=== PATIENT | female | born 1940 | race Caucasian/White ===

== ENCOUNTER 2018-03-11 06:46 | Day surgery (SDC) | payer OTHER, MEDICARE ==
[2018-03-11] MEDS ORDERED: Propofol 200 MG/20 ML SDV ONE (06:58)
[2018-03-11] MEDS ORDERED: fentaNYL 100 MCG/2 ML SDV ONE (06:58)
[2018-03-11] MEDS ORDERED: Lidocaine 2% 5 ML SDV ONE (06:58)
[2018-03-11] MEDS ORDERED: Bupivacaine 0.25%/EPINEPHrine 1:200,000 10 ML SDV ONE (07:20)
--- NOTE | 2018-03-11 07:48 | PCM.PREANE ---
Preanesthetic Assessment - Procedure Proposed Procedure: right CTR - Anesthesia/Transfusion/Family Hx Anesthesia History: Prior Anesthesia Without Reaction Family History of Anesthesia Reaction: No Transfusion History: No Prior Transfusion(s) Intubation History: Unknown - Review of Systems General: No Symptoms Pulmonary: No Symptoms Cardiovascular: Other (HTN) Gastrointestinal: No Symptoms Neurological: Pre-Existing Deficit (right hand) Other: Reports: None - Physical Assessment NPO Status Date: 03/10/18 NPO Status Time: 18:00 O2 Sat by Pulse Oximetry: 96 Respiratory Rate: 16 Vital Signs: Last Vital Signs Temp 97.3 F 03/11/18 07:00 Pulse 65 03/11/18 07:00 Resp 16 03/11/18 07:00 BP 179/76 H 03/11/18 07:00 Pulse Ox 96 03/11/18 07:00 Height: 5 ft 4 in Weight: 123 lb ASA Class: 2 Mental Status: Alert & Oriented x3 Airway Class: Mallampati = 1 Dentition: Reports: Normal Dentition Thyro-Mental Finger Breadths: 3 Mouth Opening Finger Breadths: 3 ROM/Head Extension: Full Lungs: Clear to Auscultation, Normal Respiratory Effort Cardiovascular: Regular Rate, Regular Rhythm, No Murmurs - Allergies Allergies/Adverse Reactions: Allergies Allergy/AdvReac Type Severity Reaction Status Date / Time acetaminophen [From Tylenol] Allergy Cannot Verified 03/09/18 17:02 Remember hydrocodone Allergy Cannot Verified 03/09/18 17:02 Remember sulfamethoxazole Allergy Cannot Verified 03/09/18 17:02 [From Bactrim] Remember trimethoprim [From Bactrim] Allergy Cannot Verified 03/09/18 17:02 Remember - Blood Blood Available: No Product(s) Available: None - Anesthesia Plan Pre-Op Medication Ordered: None - Acknowledgements Anesthesia Type Planned: MAC Pt an Appropriate Candidate for the Planned Anesthesia: Yes Alternatives and Risks of Anesthesia Discussed w Pt/Guardian: Yes Pt/Guardian Understands and Agrees with Anesthesia Plan: Yes PreAnesthesia Questionnaire - Past Health History Medical/Surgical History: Denies Medical/Surgical History HEENT History: Reports: Other (See Below) Other HEENT History: wears contacts Cardiovascular History: Reports: High Cholesterol, Hypertension Respiratory History: Reports: None Gastrointestinal History: Genitourinary History: Reports: None GENERAL FOREMAN History: Reports: Musculoskeletal History: Reports: Fracture Other Musculoskeletal History: hx of fx foot Neurological History: Reports: Migraines, Other (See Below) Other Neuro History: hx of migranes- not recently- hx of motion sickness- not recently Psychiatric History: Reports: None Endocrine/Metabolic History: Reports: None Hematologic History: Reports: None Immunologic History: Reports: None Oncologic (Cancer) History: Reports: Squamous Cell Carcinoma Other Oncologic History: skin cancer removed from arm Dermatologic History: Reports: Other (See Below) Other Dermatologic History: skin cancer - Past Surgical History Head Surgeries/Procedures: Reports: None GI Surgical History: Reports: Colonoscopy, EGD Musculoskeletal Surgical History: Reports: Other (See Below) Other Musculoskeletal Surgeries/Procedures:: bunionectomy and Shoulder Surgery Dermatological Surgical History: Reports: Skin Biopsy - SUBSTANCE USE Smoking Status *Q: Never Smoker Recreational Drug Use History: No - HOME MEDS Home Medications: Home Meds Aspirin [Lacie Chewable Aspirin] 81 mg PO DAILY 12/04/13 [History] Cholecalciferol (Vitamin D3) [Vitamin D3] 1,000 unit PO DAILY 12/04/13 [History] Cyanocobalamin (Vitamin B-12) [Vitamin B-12] 1,000 mcg PO DAILY 12/04/13 [ History] atorvaSTATin [Lipitor] 10 mg PO BEDTIME 12/04/13 [History] amLODIPine Besylate [Amlodipine Besylate] 2.5 mg PO DAILY 01/28/15 [History] Alendronate Sodium [Fosamax] 70 mg PO WEEKLY 12/06/15 [History] Losartan Potassium 100 mg PO DAILY 03/09/18 [History] - CURRENT (IN HOUSE) MEDS Current Meds: Current Medications Bupivacaine HCl/Epinephrine Bitart (Marcaine 0.25%/Epinephrine 1:200,000) 10 ml INJECT ONETIME ONE Stop: 03/11/18 08:01 Cefazolin Sodium/Dextrose 2 gm (/ Premix) 50 mls @ 100 mls/hr IV ONETIME ONE Stop: 03/11/18 08:29 Lactated Ringer's (Ringers, Lactated) 1,000 mls @ 125 mls/hr IV ASDIRECTED NICOLASA Last Admin: 03/11/18 07:05 Dose: 125 mls/hr Tramadol HCl (Ultram) 50 mg PO Q4H PRN PRN Reason: Pain Discontinued Medications Bupivacaine HCl/Epinephrine Bitart (Marcaine 0.25%/Epinephrine 1:200,000) Confirm Administered Dose 10 ml .ROUTE .STK-MED ONE Stop: 03/11/18 07:21 Fentanyl (Sublimaze) Confirm Administered Dose 100 mcg .ROUTE .STK-MED ONE Stop: 03/11/18 06:59 Lidocaine (Xylocaine-Mpf 2%) Confirm Administered Dose 5 ml .ROUTE .STK-MED ONE Stop: 03/11/18 06:59 Propofol (Diprivan 20 Ml) Confirm Administered Dose 200 mg .ROUTE .STK-MED ONE Stop: 03/11/18 06:59
[2018-03-11] MEDS ORDERED: ceFAZolin 2 GM in Premix Bag 1 BAG IV ONE (08:00)
[2018-03-11] MEDS ORDERED: traMADol 50 MG Tab PO PRN (08:00)
[2018-03-11] MEDS ORDERED: Bupivacaine 0.25%/EPINEPHrine 1:200,000 10 ML SDV INJECT ONE (08:00)
[2018-03-11] MEDS ORDERED: Lactated Ringers 1,000 ML IV SCH (08:00)
[2018-03-11] MEDS ORDERED: Water For Injection, Sterile 20 ML ONE (08:07)
[2018-03-11] MEDS ORDERED: ceFAZolin 1 GM Vial ONE (08:07)
--- NOTE | 2018-03-11 09:18 | PCM48HPAN ---
Post Anesthesia Note - EVALUATION WITHIN 48HRS OF ANESTHETIC Vital Signs in Normal Range: Yes Patient Participated in Evaluation: Yes Respiratory Function Stable: Yes Airway Patent: Yes Cardiovascular Function Stable: Yes Hydration Status Stable: Yes Pain Control Satisfactory: Yes Nausea and Vomiting Control Satisfactory: Yes Mental Status Recovered: Yes Resp Rate: 16 - COMMENTS/OBSERVATIONS Free Text/Narrative:: Patient was returned directly to [facility] from OR in good condition.
--- NOTE | 2018-03-11 09:19 | PCM.POSTAN ---
POST ANESTHESIA ASSESSMENT - OBSERVATIONS Free Text/Narrative:: not applicable since patient returned directly to [facility]
[2018-03-11 09:31] VITALS: BP 156/69
--- NOTE | 2018-03-11 13:16 | PCM.OPNOTE ---
- General Post-Op/Procedure Note Date of Surgery/Procedure: 03/11/18 Operative Procedure(s): right carpal tunnel release Pre Op Diagnosis: right carpal tunnel Post-Op Diagnosis: Same Anesthesia Technique: Local, MAC Primary Surgeon: Yael Turner Strawberry Grower: Jennie Hall Complications: None Condition: Good Free Text/Narrative:: Intake & Output 03/10/18 03/11/18 03/11/18 23:59 07:59 15:59 Intake Total 100 Balance 100
--- NOTE | 2018-03-11 23:26 | OR ---
SURGEON: LILI VELEZ MD DATE OF PROCEDURE: 03/11/2018 PREOPERATIVE DIAGNOSIS: Right carpal tunnel syndrome. POSTOPERATIVE DIAGNOSIS: Right carpal tunnel syndrome. PROCEDURE: Right carpal tunnel release. IRONER SOCK: FISH Maya. REASON FOR AND ROLE OF IRONER SOCK: Retraction, prepping, draping, positioning and closure assistance. ANESTHESIA: Local MAC. INDICATIONS: Ms. Arnold is a 78-year-old female with right carpal tunnel syndrome. Risks and benefits of release were discussed with her and she was in agreement to proceed. Risks were including, but not limited to, bleeding, infection, damage to underlying or overlying structures, possible need for future interventions, and possible scarring. PROCEDURE IN DETAIL: After informed consent was obtained and placed on the chart, the patient was brought to the operating theater and laid in supine position. After adequate local MAC anesthesia was obtained, the area was prepped and draped and a time- out was completed to confirm side and site. Marcaine 0.25% with epinephrine was injected into the area in a field block and the arm was exsanguinated and the tourniquet was insufflated to 200 mmHg. Attention was then paid to dissection over the transverse carpal ligament using a #15 blade to dissect through skin and subcutaneous tissues until breach of the ligament. Under direct visualization, dissection was then carried distally and proximally until complete release of the ligament. The wound was then copiously irrigated and the wound was closed using a 5-0 nylon stitch in a horizontal mattress fashion. The patient tolerated this well. All counts and needles were correct at the end of the case. The wound was dressed with Xeroform, fluffs, and a Kerlix gauze dressing and a 2- inch Bulmaro wrap. FOLLOWUP INSTRUCTIONS: The patient will see us in 2 weeks for suture removal or sooner if any problems, questions, or concerns. HEGGTHE / ARMIDAL /[id number]
== END 2018-03-11 09:40 | disposition home or self-care (01) ==
LOC: MW.SDS 06:46
PROVIDERS: ATTEND Plastic Surgery
DX: G56.01 Carpal tunnel syndrome, right upper limb (principal); G56.11 Other lesions of median nerve, right upper limb; I10 Essential (primary) hypertension; E78.00 Pure hypercholesterolemia, unspecified; Z79.82 Long term (current) use of aspirin; Z79.899 Other long term (current) drug therapy; Z88.1 Allergy status to other antibiotic agents; Z88.5 Allergy status to narcotic agent
CPT/HCPCS: 64721; J0690; J2704; J3010; J3490; J7120

== ENCOUNTER 2023-01-27 03:51 | Emergency (ER) | payer MEDICARE ==
[2023-01-27] MEDS ORDERED: Acetaminophen 500 MG Tab PO ONE (04:09)
[2023-01-27 04:20] LABS: BASOPHILS PERCENT AUTO 0.2 % (0.0-1.5); EOSINOPHILS PERCENT AUTO 0.3 % (0.0-7.0); HEMATOCRIT 36.3 % (36.0-46.0); HEMOGLOBIN 12.2 g/dL (12.0-16.0); LYMPHOCYTES PERCENT AUTO 9.7 % (16.0-40.0); MEAN CORPUSCULAR HEMOGLOBIN 32.7 pg (27.0-32.0); MEAN CORPUSCULAR HGB CONC 33.6 g/dL (31.0-37.0); MEAN CORPUSCULAR VOLUME 97.3 fL (80.0-98.0); MONOCYTES ABSOLUTE AUTO 1.1 K/uL (0.0-0.8); MONOCYTES PERCENT AUTO 10.1 % (0.0-15.0); NEUTROPHILS ABSOLUTE AUTO 8.4 K/uL (1.4-5.7); NEUTROPHILS PERCENT AUTO 79.7 % (48.0-80.0); NRBC ABSOLUTE 0 K/uL; PLATELET COUNT,PLT 229 K/uL (150-400); RED BLOOD CELL COUNT 3.73 M/uL (4.30-5.90); WHITE BLOOD CELL COUNT,WBC 10.49 K/uL (4.0-11.0)
[2023-01-27 04:47] LABS: A/G RATIO 0.9 (0.9-1.6); ALBUMIN 3.1 g/dL (3.4-5.0); BILIRUBIN TOTAL 0.9 mg/dL (0.2-1.0); CALCIUM 8.2 mg/dL (8.5-10.1); CARBON DIOXIDE,CO2 23.7 mmol/L (21.0-32.0); EST CRCL DRUG DOSING (CG) 36.81 mL/min; POTASSIUM,K 3.9 mmol/L (3.5-5.1); PROTEIN TOTAL,TP 6.5 g/dL (6.4-8.2)
[2023-01-27 04:48] LABS: LACTIC ACID 0.7 mmol/L (0.4-2.0)
[2023-01-27] MEDS ORDERED: Azithromycin 500 MG in Sodium Chloride 0.9% 250 ML IV ONE (04:59)
[2023-01-27] MEDS ORDERED: cefTRIAXone 1 GM in Sodium Chloride 0.9% 50 ML IV ONE (04:59)
[2023-01-27 05:14] LABS: APPEARANCE,URINE CLEAR; BILIRUBIN,URINE NEGATIVE (NEGATIVE); GLUCOSE,URINE NEGATIVE (NEGATIVE); KETONES,URINE NEGATIVE (NEGATIVE); LEUKOCYTE ESTERASE,URINE NEGATIVE (NEGATIVE); NITRITE,URINE NEGATIVE (NEGATIVE); OCCULT BLOOD,URINE NEGATIVE (NEGATIVE); PROTEIN,URINE NEGATIVE (NEGATIVE); UROBILINOGEN,URINE 0.2 EU/dL (<2.0)
[2023-01-27 05:20] LABS: COLOR,URINE AMBER
[2023-01-27 06:29] VITALS: BP 111/51; PULSE 80
== END 2023-01-27 06:30 | disposition home or self-care (01) ==
LOC: MW.ED 03:51
DX: J18.9 Pneumonia, unspecified organism (principal); I10 Essential (primary) hypertension; Z20.822 Contact with and (suspected) exposure to COVID-19; Z79.899 Other long term (current) drug therapy; Z88.8 Allergy status to other drugs, medicaments and biological substances; Z88.2 Allergy status to sulfonamides
CPT/HCPCS: 36415; 71045; 80053; 81003; 83605; 83880; 84484; 85025; 85379; 87040; 93005; 96365; 96368; 99285; A9270; J0456; J0696; J3490; J7050; U0002; 93010; 99284

== ENCOUNTER 2023-01-31 15:54 | Inpatient (IN) | payer MEDICARE ==
[2023-01-31] MEDS ORDERED: LORazepam 2 MG/ML SDV IVPUSH ONE (17:03)
[2023-01-31 17:18] LABS: BASOPHILS PERCENT AUTO 0.2 % (0.0-1.5); EOSINOPHILS PERCENT AUTO 0.1 % (0.0-7.0); HEMOGLOBIN 12.5 g/dL (12.0-16.0); LYMPHOCYTES ABSOLUTE AUTO 1.3 K/uL (0.6-2.4); LYMPHOCYTES PERCENT AUTO 12.3 % (16.0-40.0); MEAN CORPUSCULAR HEMOGLOBIN 31.7 pg (27.0-32.0); MEAN CORPUSCULAR HGB CONC 32.9 g/dL (31.0-37.0); MEAN CORPUSCULAR VOLUME 96.4 fL (80.0-98.0); MONOCYTES ABSOLUTE AUTO 1.1 K/uL (0.0-0.8); MONOCYTES PERCENT AUTO 10.9 % (0.0-15.0); NEUTROPHILS ABSOLUTE AUTO 7.9 K/uL (1.4-5.7); NEUTROPHILS PERCENT AUTO 76.5 % (48.0-80.0); NRBC ABSOLUTE 0 K/uL; PLATELET COUNT,PLT 334 K/uL (150-400); RED BLOOD CELL COUNT 3.94 M/uL (4.30-5.90); WHITE BLOOD CELL COUNT,WBC 10.27 K/uL (4.0-11.0)
[2023-01-31] MEDS: Lactated Ringers 1,000 ML IV SCH (17:25)
[2023-01-31 17:41] LABS: A/G RATIO 0.8 (0.9-1.6); ALBUMIN 3.2 g/dL (3.4-5.0); BILIRUBIN TOTAL 0.8 mg/dL (0.2-1.0); CALCIUM 9.1 mg/dL (8.5-10.1); EST CRCL DRUG DOSING (CG) 36.81 mL/min; POTASSIUM,K 3.9 mmol/L (3.5-5.1); PROTEIN TOTAL,TP 7.3 g/dL (6.4-8.2)
[2023-01-31] MEDS ORDERED: Piperacillin/Tazobactam 4.5 GM in Sodium Chloride 0.9% 100 ML IV SCH (18:00)
[2023-01-31] MEDS ORDERED: Sodium Chloride 0.9% 20 ML SDV IV PRN (18:02)
[2023-01-31] MEDS ORDERED: Ondansetron 4 MG/2 ML SDV IVPUSH PRN (18:02)
[2023-01-31] MEDS ORDERED: Sodium Chloride 0.9% 10 ML Syringe FLUSH PRN (18:02)
[2023-01-31] MEDS ORDERED: Polyethylene Glycol 3350 Powder 17 GM Packet PO PRN (18:02)
[2023-01-31] MEDS ORDERED: LORazepam 2 MG/ML SDV IVPUSH PRN (18:02)
[2023-01-31] MEDS ORDERED: Acetaminophen 325 MG Tab PO PRN (18:02)
[2023-01-31] MEDS ORDERED: Albuterol/Ipratropium 3.0-0.5 MG/3 ML Neb Soln NEB PRN (18:02)
[2023-01-31] MEDS ORDERED: Sodium Chloride 0.9% 2.5 ML Syringe FLUSH PRN (18:02)
[2023-01-31] MEDS: Ampicillin/Sulbactam Na 1.5 GM in Sodium Chloride 0.9% 50 ML IV SCH ×2 (19:33→23:40)
[2023-02-01 00:35] LABS: APPEARANCE,URINE SLT CLOUDY; BILIRUBIN,URINE NEGATIVE (NEGATIVE); COLOR,URINE YELLOW; GLUCOSE,URINE NEGATIVE (NEGATIVE); KETONES,URINE TRACE mg/dL (NEGATIVE); LEUKOCYTE ESTERASE,URINE NEGATIVE (NEGATIVE); NITRITE,URINE NEGATIVE (NEGATIVE); OCCULT BLOOD,URINE NEGATIVE (NEGATIVE); PROTEIN,URINE NEGATIVE (NEGATIVE); UROBILINOGEN,URINE 0.2 EU/dL (<2.0)
[2023-02-01] MEDS: Lactated Ringers 1,000 ML IV SCH ×3 (01:29→17:53)
[2023-02-01 05:57] LABS: BASOPHILS PERCENT AUTO 0.3 % (0.0-1.5); HEMATOCRIT 37.4 % (36.0-46.0); HEMOGLOBIN 12.3 g/dL (12.0-16.0); LYMPHOCYTES ABSOLUTE AUTO 0.7 K/uL (0.6-2.4); LYMPHOCYTES PERCENT AUTO 6.5 % (16.0-40.0); MEAN CORPUSCULAR HEMOGLOBIN 31.6 pg (27.0-32.0); MEAN CORPUSCULAR HGB CONC 32.9 g/dL (31.0-37.0); MEAN CORPUSCULAR VOLUME 96.1 fL (80.0-98.0); MONOCYTES ABSOLUTE AUTO 1.3 K/uL (0.0-0.8); MONOCYTES PERCENT AUTO 11.4 % (0.0-15.0); NEUTROPHILS ABSOLUTE AUTO 9.4 K/uL (1.4-5.7); NEUTROPHILS PERCENT AUTO 81.8 % (48.0-80.0); NRBC ABSOLUTE 0 K/uL; PLATELET COUNT,PLT 326 K/uL (150-400); RED BLOOD CELL COUNT 3.89 M/uL (4.30-5.90); WHITE BLOOD CELL COUNT,WBC 11.46 K/uL (4.0-11.0)
[2023-02-01] MEDS: Ampicillin/Sulbactam Na 1.5 GM in Sodium Chloride 0.9% 50 ML IV SCH ×3 (06:12→17:54)
[2023-02-01 06:19] LABS: CALCIUM 8.3 mg/dL (8.5-10.1); CARBON DIOXIDE,CO2 24.2 mmol/L (21.0-32.0); CREATININE 0.8 mg/dL (0.6-1.0); EST CRCL DRUG DOSING (CG) 46.01 mL/min; MAGNESIUM 1.8 mg/dL (1.8-2.4); POTASSIUM,K 3.7 mmol/L (3.5-5.1)
[2023-02-01] MEDS: Benzonatate 100 MG Cap PO SCH ×3 (06:22→21:20)
[2023-02-01] MEDS ORDERED: Losartan 50 MG Tab PO SCH (09:00)
[2023-02-01] MEDS: Escitalopram 10 MG Tab PO SCH (09:39)
[2023-02-01] MEDS: Dorzolamide 2% Ophth Soln 10 ML Bottle EYEBOTH SCH (10:28)
[2023-02-01] MEDS ORDERED: Labetalol 100 MG/20 ML MDV IVPUSH PRN (10:41)
[2023-02-01] MEDS ORDERED: Acetaminophen 650 MG Supp RECTAL PRN (11:47)
[2023-02-01] MEDS: Enoxaparin 40 MG/0.4 ML Syringe SUBCUT SCH (11:51)
[2023-02-02] MEDS: Ampicillin/Sulbactam Na 1.5 GM in Sodium Chloride 0.9% 50 ML IV SCH ×2 (00:13→05:17)
[2023-02-02] MEDS: Lactated Ringers 1,000 ML IV SCH (01:47)
[2023-02-02] MEDS: Benzonatate 100 MG Cap PO SCH (05:19)
[2023-02-02 05:49] LABS: BASOPHILS PERCENT AUTO 0.2 % (0.0-1.5); EOSINOPHILS PERCENT AUTO 0.1 % (0.0-7.0); HEMATOCRIT 35.5 % (36.0-46.0); HEMOGLOBIN 11.7 g/dL (12.0-16.0); LYMPHOCYTES ABSOLUTE AUTO 0.8 K/uL (0.6-2.4); LYMPHOCYTES PERCENT AUTO 6.5 % (16.0-40.0); MEAN CORPUSCULAR HEMOGLOBIN 31.2 pg (27.0-32.0); MEAN CORPUSCULAR VOLUME 94.7 fL (80.0-98.0); MONOCYTES ABSOLUTE AUTO 1.3 K/uL (0.0-0.8); MONOCYTES PERCENT AUTO 9.9 % (0.0-15.0); NEUTROPHILS ABSOLUTE AUTO 10.6 K/uL (1.4-5.7); NEUTROPHILS PERCENT AUTO 83.3 % (48.0-80.0); NRBC ABSOLUTE 0 K/uL; PLATELET COUNT,PLT 322 K/uL (150-400); RED BLOOD CELL COUNT 3.75 M/uL (4.30-5.90); WHITE BLOOD CELL COUNT,WBC 12.67 K/uL (4.0-11.0)
[2023-02-02 06:05] LABS: CALCIUM 7.8 mg/dL (8.5-10.1); CARBON DIOXIDE,CO2 23.2 mmol/L (21.0-32.0); CREATININE 0.8 mg/dL (0.6-1.0); EST CRCL DRUG DOSING (CG) 46.01 mL/min; MAGNESIUM 1.6 mg/dL (1.8-2.4)
[2023-02-02] MEDS ORDERED: NS with KCl 40mEq 1,000 ML IV ONE (07:39)
[2023-02-02] MEDS: Losartan 50 MG Tab PO SCH (08:28)
[2023-02-02] MEDS: Escitalopram 10 MG Tab PO SCH (08:31)
[2023-02-02] MEDS: Dorzolamide 2% Ophth Soln 10 ML Bottle EYEBOTH SCH (08:32)
[2023-02-02] MEDS: Piperacillin/Tazobactam 4.5 GM in Sodium Chloride 0.9% 100 ML IV SCH ×2 (09:50→17:29)
[2023-02-02] MEDS ORDERED: Benzonatate 100 MG Cap PO PRN (10:09)
[2023-02-02] MEDS: Enoxaparin 40 MG/0.4 ML Syringe SUBCUT SCH (12:25)
[2023-02-03] MEDS: Piperacillin/Tazobactam 4.5 GM in Sodium Chloride 0.9% 100 ML IV SCH ×4 (00:18→20:42)
[2023-02-03 05:50] LABS: BASOPHILS PERCENT AUTO 0.2 % (0.0-1.5); EOSINOPHILS ABSOLUTE AUTO 0.1 K/uL (0.0-0.7); EOSINOPHILS PERCENT AUTO 0.6 % (0.0-7.0); HEMATOCRIT 33.4 % (36.0-46.0); LYMPHOCYTES PERCENT AUTO 9.6 % (16.0-40.0); MEAN CORPUSCULAR HEMOGLOBIN 31.3 pg (27.0-32.0); MEAN CORPUSCULAR HGB CONC 32.9 g/dL (31.0-37.0); MEAN CORPUSCULAR VOLUME 95.2 fL (80.0-98.0); MONOCYTES ABSOLUTE AUTO 0.9 K/uL (0.0-0.8); MONOCYTES PERCENT AUTO 8.9 % (0.0-15.0); NEUTROPHILS ABSOLUTE AUTO 8.3 K/uL (1.4-5.7); NEUTROPHILS PERCENT AUTO 80.7 % (48.0-80.0); NRBC ABSOLUTE 0 K/uL; PLATELET COUNT,PLT 300 K/uL (150-400); RED BLOOD CELL COUNT 3.51 M/uL (4.30-5.90); WHITE BLOOD CELL COUNT,WBC 10.24 K/uL (4.0-11.0)
[2023-02-03 06:19] LABS: CALCIUM 7.9 mg/dL (8.5-10.1); CARBON DIOXIDE,CO2 21.4 mmol/L (21.0-32.0); CREATININE 0.7 mg/dL (0.6-1.0); EST CRCL DRUG DOSING (CG) 52.58 mL/min; MAGNESIUM 1.7 mg/dL (1.8-2.4); POTASSIUM,K 3.4 mmol/L (3.5-5.1)
[2023-02-03] MEDS ORDERED: Magnesium Sulfate/Water 2 GM in Premix Bag 1 BAG IV ONE (07:33)
[2023-02-03] MEDS ORDERED: Potassium Chloride 20 MEQ Tab.ER PO ONE (07:34)
[2023-02-03] MEDS: Escitalopram 10 MG Tab PO SCH (08:06)
[2023-02-03] MEDS: Losartan 50 MG Tab PO SCH (08:09)
[2023-02-03] MEDS: Dorzolamide 2% Ophth Soln 10 ML Bottle EYEBOTH SCH (08:33)
[2023-02-03] MEDS: Enoxaparin 40 MG/0.4 ML Syringe SUBCUT SCH (10:54)
[2023-02-04] MEDS: Piperacillin/Tazobactam 4.5 GM in Sodium Chloride 0.9% 100 ML IV SCH ×4 (02:06→20:40)
[2023-02-04 06:17] LABS: BASOPHILS PERCENT AUTO 0.2 % (0.0-1.5); EOSINOPHILS ABSOLUTE AUTO 0.1 K/uL (0.0-0.7); EOSINOPHILS PERCENT AUTO 1.5 % (0.0-7.0); HEMOGLOBIN 10.7 g/dL (12.0-16.0); LYMPHOCYTES ABSOLUTE AUTO 0.9 K/uL (0.6-2.4); LYMPHOCYTES PERCENT AUTO 10.6 % (16.0-40.0); MEAN CORPUSCULAR HEMOGLOBIN 31.9 pg (27.0-32.0); MEAN CORPUSCULAR HGB CONC 33.4 g/dL (31.0-37.0); MEAN CORPUSCULAR VOLUME 95.5 fL (80.0-98.0); MONOCYTES ABSOLUTE AUTO 0.6 K/uL (0.0-0.8); MONOCYTES PERCENT AUTO 6.8 % (0.0-15.0); NEUTROPHILS ABSOLUTE AUTO 6.6 K/uL (1.4-5.7); NEUTROPHILS PERCENT AUTO 80.9 % (48.0-80.0); NRBC ABSOLUTE 0 K/uL; PLATELET COUNT,PLT 322 K/uL (150-400); RED BLOOD CELL COUNT 3.35 M/uL (4.30-5.90); WHITE BLOOD CELL COUNT,WBC 8.11 K/uL (4.0-11.0)
[2023-02-04 06:42] LABS: CALCIUM 7.9 mg/dL (8.5-10.1); CARBON DIOXIDE,CO2 21.6 mmol/L (21.0-32.0); CREATININE 0.7 mg/dL (0.6-1.0); EST CRCL DRUG DOSING (CG) 52.58 mL/min; MAGNESIUM 2.1 mg/dL (1.8-2.4); POTASSIUM,K 3.5 mmol/L (3.5-5.1)
[2023-02-04] MEDS: Losartan 50 MG Tab PO SCH (08:24)
[2023-02-04] MEDS: Escitalopram 10 MG Tab PO SCH (08:29)
[2023-02-04] MEDS: Dorzolamide 2% Ophth Soln 10 ML Bottle EYEBOTH SCH (09:45)
[2023-02-04] MEDS: Enoxaparin 40 MG/0.4 ML Syringe SUBCUT SCH (11:43)
[2023-02-05] MEDS: Piperacillin/Tazobactam 4.5 GM in Sodium Chloride 0.9% 100 ML IV SCH ×4 (01:50→20:45)
[2023-02-05 06:09] LABS: BASOPHILS PERCENT AUTO 0.2 % (0.0-1.5); EOSINOPHILS ABSOLUTE AUTO 0.2 K/uL (0.0-0.7); EOSINOPHILS PERCENT AUTO 2.3 % (0.0-7.0); HEMATOCRIT 31.8 % (36.0-46.0); HEMOGLOBIN 10.4 g/dL (12.0-16.0); LYMPHOCYTES ABSOLUTE AUTO 0.9 K/uL (0.6-2.4); LYMPHOCYTES PERCENT AUTO 10.4 % (16.0-40.0); MEAN CORPUSCULAR HEMOGLOBIN 31.1 pg (27.0-32.0); MEAN CORPUSCULAR HGB CONC 32.7 g/dL (31.0-37.0); MEAN CORPUSCULAR VOLUME 95.2 fL (80.0-98.0); MONOCYTES ABSOLUTE AUTO 0.6 K/uL (0.0-0.8); MONOCYTES PERCENT AUTO 7.2 % (0.0-15.0); NEUTROPHILS PERCENT AUTO 79.9 % (48.0-80.0); NRBC ABSOLUTE 0 K/uL; PLATELET COUNT,PLT 347 K/uL (150-400); RED BLOOD CELL COUNT 3.34 M/uL (4.30-5.90); WHITE BLOOD CELL COUNT,WBC 8.73 K/uL (4.0-11.0)
[2023-02-05 06:28] LABS: CARBON DIOXIDE,CO2 22.8 mmol/L (21.0-32.0); CREATININE 0.8 mg/dL (0.6-1.0); EST CRCL DRUG DOSING (CG) 46.01 mL/min; MAGNESIUM 1.9 mg/dL (1.8-2.4); POTASSIUM,K 3.3 mmol/L (3.5-5.1)
[2023-02-05] MEDS: Escitalopram 10 MG Tab PO SCH (08:40)
[2023-02-05] MEDS: Losartan 50 MG Tab PO SCH (08:40)
[2023-02-05] MEDS: Dorzolamide 2% Ophth Soln 10 ML Bottle EYEBOTH SCH (08:53)
[2023-02-05] MEDS ORDERED: Potassium Chloride 10 MEQ Tab.ER PO ONE (09:38)
[2023-02-05] MEDS: Enoxaparin 40 MG/0.4 ML Syringe SUBCUT SCH (11:19)
[2023-02-06] MEDS: Piperacillin/Tazobactam 4.5 GM in Sodium Chloride 0.9% 100 ML IV SCH ×4 (02:43→21:14)
[2023-02-06] MEDS: Losartan 50 MG Tab PO SCH (08:43)
[2023-02-06] MEDS: Escitalopram 10 MG Tab PO SCH (08:44)
[2023-02-06] MEDS: Dorzolamide 2% Ophth Soln 10 ML Bottle EYEBOTH SCH (09:04)
[2023-02-06] MEDS: Enoxaparin 40 MG/0.4 ML Syringe SUBCUT SCH (11:30)
[2023-02-07] MEDS: Dorzolamide 2% Ophth Soln 10 ML Bottle EYEBOTH SCH (10:07)
[2023-02-07] MEDS: Escitalopram 10 MG Tab PO SCH (10:07)
[2023-02-07] MEDS: Losartan 50 MG Tab PO SCH (10:11)
[2023-02-07] MEDS: Enoxaparin 40 MG/0.4 ML Syringe SUBCUT SCH (10:43)
[2023-02-07 11:24] VITALS: BP 131/61; PULSE 74
== END 2023-02-07 11:00 | disposition home health service (06) | DRG 194 ==
LOC: MW.MS 15:54
PROVIDERS: ADMIT Family Medicine; ATTEND Family Medicine
DX: J18.9 Pneumonia, unspecified organism (principal); F02.811 Dementia in other diseases classified elsewhere, unspecified severity, with agitation; J69.0 Pneumonitis due to inhalation of food and vomit; Z20.822 Contact with and (suspected) exposure to COVID-19; R91.8 Other nonspecific abnormal finding of lung field; Z51.5 Encounter for palliative care; G30.9 Alzheimer's disease, unspecified; Z66 Do not resuscitate; I10 Essential (primary) hypertension; M19.90 Unspecified osteoarthritis, unspecified site; E86.0 Dehydration; H40.9 Unspecified glaucoma; E78.5 Hyperlipidemia, unspecified; Z79.899 Other long term (current) drug therapy; Z88.2 Allergy status to sulfonamides; Z88.8 Allergy status to other drugs, medicaments and biological substances; Z85.828 Personal history of other malignant neoplasm of skin; Z98.890 Other specified postprocedural states
CPT/HCPCS: 36415; 71045; 71045-26; 80048; 80053; 80202; 81003; 82947; 83605; 83735; 85025; 87040; 87086; 97110-GP; 97163-GP; 97530-GP; A9270-GY; J0295; J1650; J2060; J2543; J3370; J3475; J3480; J3490; J7050; J7120; U0002